=== PATIENT | female | born 1985 | race African-American/Black ===

== ENCOUNTER 2020-09-23 19:54 | Emergency (ER) | payer MEDICAID ==
[~2020-09-23] VITALS: Ht 162.6 cm; Wt 81.2 kg
--- NOTE | 2020-09-23 20:08 | NUR ---
MD Dipesh Fox in room to do MSE.
--- NOTE | 2020-09-23 20:28 | NUR ---
chiller technician in room to draw blood from patient.
[2020-09-23 20:43] LABS: BASOPHILS % (AUTO) 0.2 % (0.0-2.0); EOSINOPHILS # (AUTO) 0.1 K/uL (0.0-0.7); EOSINOPHILS % (AUTO) 0.4 % (0.0-7.0); HEMATOCRIT 38.6 % (31.2-41.9); HEMOGLOBIN 12.9 g/dL (10.9-14.3); LYMPHOCYTES # (AUTO) 2.6 K/uL (20.0-40.0); LYMPHOCYTES % (AUTO) 21.5 % (20.5-51.5); MEAN CORPUSCULAR HEMOGLOBIN 28.5 uug (24.7-32.8); MEAN CORPUSCULAR HGB CONC 33 g/dL (32.3-35.6); MEAN CORPUSCULAR VOLUME 85.5 fL (75.5-95.3); MONOCYTES # (AUTO) 0.5 K/uL (2.0-10.0); MONOCYTES % (AUTO) 4.3 % (0.0-11.0); NEUTROPHILS # (AUTO) 8.8 K/uL (1.8-8.9); NEUTROPHILS % (AUTO) 73.6 % (38.5-71.5); PLATELET COUNT (AUTO) 296 K/uL (179-408); RED BLOOD CELL COUNT(AUTO) 4.52 MIL/uL (3.63-4.92)
[2020-09-23 20:48] LABS: CARBON DIOXIDE 28 mmol/L (21-32); CHLORIDE 101 mmol/L (98-107); GLUCOSE 93 mg/dL (74-106); POTASSIUM 3.6 mmol/L (3.5-5.1); UREA NITROGEN, BLOOD 12 mg/dL (7-18)
[2020-09-23 20:54] LABS: ETHANOL < 3 MG/DL (0-0)
[2020-09-23 20:55] LABS: ALANINE AMINOTRANSFERASE 15 U/L (14-59); ALKALINE PHOSPHATASE 95 U/L (50-136); ASPARTATE AMINOTRANSFERASE 8 U/L (15-37); BILIRUBIN,DIRECT 0.1 mg/dL (0.0-0.2); BILIRUBIN,TOTAL 0.4 mg/dL (0.2-1.0); TOTAL PROTEIN, SERUM 8.1 g/dL (6.4-8.2)
[2020-09-23 20:56] LABS: ACETAMINOPHEN < 2.0 ug/mL (10-30)
--- NOTE | 2020-09-23 21:00 | NUR ---
Patient is sleeping in room, eyes closed. No acute distress is noted at this time. Patient deliberately flexes her arm every time I attempt to take a blood pressure; coaxed patient to relax her arm during blood pressure reading.
[2020-09-23 21:15] LABS: *BLOOD, URINE NEGATIVE (NEGATIVE); *CLARITY,URINE CLEAR (CLEAR); *COLOR,URINE YELLOW (YELLOW); *KETONES,URINE 3+ (NEGATIVE); LEUKOCYTE ESTERASE ,URINE NEGATIVE (NEGATIVE); NITRITE, URINE NEGATIVE (NEGATIVE); UGLUCOSE NEGATIVE (NEGATIVE)
[2020-09-23 21:19] LABS: *BILIRUBIN,URIN 1+ (NEGATIVE)
[2020-09-23 21:21] LABS: *AMPHETAMINE, URINE NEGATIVE (NEGATIVE); *CANNABINOID, URINE POSITIVE (NEGATIVE); *COCCAINE, URINE NEGATIVE (NEGATIVE); *OPIATE, URINE NEGATIVE (NEGATIVE); *PHENCYCLIDINE SCREEN,URINE NEGATIVE (NEGATIVE); *URINE HCG, QUAL NEGATIVE (NEGATIVE)
[2020-09-23 21:26] LABS: BACTERIA,URINE NONE SEEN /HPF (NONE SEEN); RBC,URINE 0-3 /HPF (0-3)
[2020-09-23 21:27] LABS: MUCUS,URINE FEW /LPF (0-FEW); SQUAMOUS EPITHELIAL CELL,UR FEW /HPF (NONE SEEN); URINE AMORPHOUS URATE FEW /HPF
--- NOTE | 2020-09-23 22:15 | NUR ---
Called [facility]; stated they have room for voluntary psych admission for schizophrenia. Requested patient's packet; will fax to . Addendum: 09/23/20 at 2326 by SONA Pending COVID test result; once resulted. Packet will be faxed.
--- NOTE | 2020-09-23 22:20 | NUR ---
Patient was offered food and more water: patient refused and stated she wants to sleep. Lights dimmed for patient comfort.
--- NOTE | 2020-09-23 23:00 | NUR ---
Patient is resting on bed, eyes closed. No acute distress is noted at this time.
--- NOTE | 2020-09-24 00:22 | NUR ---
electronic warfare technician Surya called to notify patient is COVID negative.
--- NOTE | 2020-09-24 00:39 | NUR ---
Medical clearance and resulted COVID test faxed over to [facility] for psych admission.
--- NOTE | 2020-09-24 01:00 | NUR ---
Patient is sleeping on the bed, eyes closed. No acute distress has been noted at this time.
--- NOTE | 2020-09-24 01:05 | NUR ---
Called [facility] psychiatric intake to confirm receiving of admission packet. LATRICIA Dodson, the dental scheduling coordinator, states the packet has been received and patient is going to be referred to [facility] for psychiatric admission due to the [facility] location being full. LATRICIA Dodson states, she will call back to follow up on the patient's status for admission.
--- NOTE | 2020-09-24 02:45 | NUR ---
Followed up with patient's psychatric admission status at [facility]. RN Art pharmacy clinical coordinator states that the nursing supervisor plastics has not had a chance to review the patient's packet yet. He states they will call back once they have been able to review it.
[2020-09-24] MEDS ORDERED: OLAN5TAB3 PO (03:18)
--- NOTE | 2020-09-24 03:48 | NUR ---
Note hugo in EDM - 09/24/20 at 0649 by SONA LATRICIA Holland called back from [facility]. Nursing tube room supervisor states the patient has no suicidal ideation, no homicidal ideation, no depression, no hallucination, and therefore does not qualify to enter their psychiatric facility. Declination papers will be faxed to us soon.
--- NOTE | 2020-09-24 03:48 | NUR ---
LATRICIA Holland called back from [facility]. Nursing supervisor crack off states the patient has no suicidal ideation, no homicidal ideation, no depression, no hallucination, and therefore does not qualify to enter their psychiatric facility.
--- NOTE | 2020-09-24 04:00 | NUR ---
Patient is sleeping on bed, eyes closed. No acute distress is noted.
--- NOTE | 2020-09-24 05:00 | NUR ---
LATRICIA Morocho, business coordinator from [facility], called stating the patient's chart was reviewed by both [facility] and [facility] nursing supervisors and was declined admission due to not meeting psych criteria. MD Dipesh Fox notified.
--- NOTE | 2020-09-24 06:00 | NUR ---
Patient is sleeping, eyes closed, no acute distress noted.
[2020-09-24 06:30] VITALS: BP 120/75
--- NOTE | 2020-09-24 06:30 | NUR ---
Patient discharged in stable condition. Written and verbal after care instructions given. Patient verbalizes understanding of instructions. Stressed follow up or return to ER for worsening s/s. Patient received Rx, ambulates with steady gait, V/S stable, left with all personal belongings. I attempted to get her connected to homeless resources, however the patient disregarded and continously demanded to be placed in a psychiatric facility. I informed her that I attempted to find placement for her, but she was disqualified by [facility] and [place] after those facilities reviewed her chart. The patient refused to leave, security was called to escort the patient out of the facility.
== END 2020-09-24 06:30 | disposition home or self-care (01) ==
LOC: ER 19:59
DX: F20.9 Schizophrenia, unspecified (principal); Z20.822 Contact with and (suspected) exposure to COVID-19; F17.210 Nicotine dependence, cigarettes, uncomplicated; Z59.0 Homelessness
CPT/HCPCS: 36415; 84703; 85025; A4663; G0480